=== PATIENT | female | born 1980 | race Two or more races ===

== ENCOUNTER 2018-11-22 14:23 | Emergency (ER) | payer SELFPAY ==
[~2018-11-22] VITALS: Ht 162.6 cm; Wt 67.1 kg
[2018-11-22 14:45] VITALS: BP 144/82
[2018-11-22] MEDS ORDERED: diphenhdrAMINE HCL 25 MG CAP PO ONE (16:30)
== END 2018-11-22 16:52 | disposition home or self-care (01) ==
LOC: ER 14:23
DX: S10.96XA Insect bite of unspecified part of neck, initial encounter (principal); Z90.49 Acquired absence of other specified parts of digestive tract; Z98.51 Tubal ligation status; W57.XXXA Bitten or stung by nonvenomous insect and other nonvenomous arthropods, initial encounter; Y93.89 Activity, other specified; Y99.8 Other external cause status; Y92.89 Other specified places as the place of occurrence of the external cause